=== PATIENT | female | born 1995 | race Caucasian/White ===

== ENCOUNTER 2019-04-11 15:22 | Emergency (ER) | payer MEDICAID ==
[~2019-04-11] VITALS: Ht 162.6 cm; Wt 87.1 kg
[2019-04-11 15:30] VITALS: Ht 162.6 cm; Wt 87.1 kg
[2019-04-11 16:13] LABS: BASOPHIL % 0.3 % (0-2); PLATELET COUNT 275 x10^3mcL (130-400)
[2019-04-11 20:58] VITALS: BP 139/80
== END 2019-04-11 20:58 | disposition home or self-care (01) ==
LOC: ED 15:22
DX: O20.0 Threatened abortion (principal); Z3A.01 Less than 8 weeks gestation of pregnancy
CPT/HCPCS: 36415